=== PATIENT | male | born 2000 | race African-American/Black ===

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

== ENCOUNTER 2018-04-14 12:19 | Emergency (ER) | payer OTHER ==
[2018-04-14] MEDS ORDERED: Lidocaine 1% with EPINEPHrine 1:100,000 20 ML MDV INJECT ONE (12:38)
[2018-04-14] MEDS ORDERED: Diphtheria,Pertussis(Acell),Tetanus Vaccine 0.5 ML SDV IM ONE (12:38)
--- NOTE | 2018-04-14 13:05 | EDM.PDOC ---
ED HPI GENERAL MEDICAL PROBLEM - General Chief Complaint: Laceration Stated Complaint: LIP LAC Time Seen by Provider: 04/14/18 12:30 Source of Information: Reports: Patient History Limitations: Reports: No Limitations - History of Present Illness INITIAL COMMENTS - FREE TEXT/NARRATIVE: The patient [facility] the [facility] living. He was playing basketball and he was hit with an elbow in the lower lip. He has a laceration just below the lower lip and one inside the lip. The laceration is about 1cm long on the outside. He was not knocked out. He is unsure of his tetanus. He has no teeth that are moving. Onset: Sudden Duration: Minutes: Location: Reports: Face Quality: Reports: Sharp Severity: Mild Improves with: Reports: None Worsens with: Reports: None Associated Symptoms: Reports: No Other Symptoms Lower Lip Pain Score (Numeric/FACES): 7 - Related Data Allergies Allergy/AdvReac Type Severity Reaction Status Date / Time No Known Allergies Allergy Verified 04/14/18 12:58 Home Meds: Home Meds . [No Known Home Meds] 12/17/17 [History] Past Medical History - Past Health History Medical/Surgical History: Denies Medical/Surgical History Social & Family History - Family History Family Medical History: Noncontributory - Tobacco Use Smoking Status *Q: Never Smoker - Caffeine Use Caffeine Use: Reports: Soda, Tea - Recreational Drug Use Recreational Drug Type: Reports: Marijuana/Hashish Other Recreational Drug Type: last used a few months ago ED ROS GENERAL - Review of Systems Review Of Systems: See Below Constitutional: Reports: No Symptoms HEENT: Reports: Other (Laceration to the inner lip and below the lower lip) Respiratory: Reports: No Symptoms Cardiovascular: Reports: No Symptoms Endocrine: Reports: No Symptoms GI/Abdominal: Reports: No Symptoms : Reports: No Symptoms ED EXAM, SKIN/RASH Exam: See Below Exam Limited By: No Limitations General Appearance: Alert, No Apparent Distress Ears: Normal External Exam Nose: Normal Inspection Head: Other (1cm laceration just below the lower lip. 0.5cm laceration to the inner lip. The teeth are solid and do not move.) Neck: Normal Inspection Respiratory/Chest: No Respiratory Distress Neurological: Alert, Oriented, No Motor/Sensory Deficits ED SKIN PROCEDURES - Laceration/Wound Repair Face Lac/Wound length In cm: 1 Appearance: Subcutaneous, Linear Local Anesthesia - Lidocaine (Xylocaine): 1% with EPI Skin Prep: Saline Exploration/Debridement/Repair: Wound Explored, In a Bloodless Field, Explored to Base Closed with: Sutures Suture Size: 4-0 # of Sutures: 4 Suture Type: Nylon, Interrupted, Simple # of Sutures: 1 Tetanus Status Addressed: Yes Complications: No Course - Vital Signs Last Recorded V/S: Last Vital Signs Temp 98.2 F 04/14/18 12:30 Pulse 71 04/14/18 12:30 Resp 20 04/14/18 12:30 BP 137/86 04/14/18 12:30 Pulse Ox 100 04/14/18 12:30 - Orders/Labs/Meds Orders: Active Orders 24 hr Category Date Time Status Vaccines to be Administered [RC] PER UNIT ROUTINE Care 04/14/18 12:38 Active Meds: Medications Discontinued Medications Generic Name Dose Route Start Last Admin Trade Name Jaron PRN Reason Stop Dose Admin Diphtheria/Tetanus/Acell Pertussis 0.5 ml 04/14/18 12:38 04/14/18 12:44 Adacel IM 04/14/18 12:39 0.5 ml .ONCE ONE Administration Lidocaine/Epinephrine 20 ml 04/14/18 12:38 04/14/18 12:43 Xylocaine 1% With Epinephrine 1:100,000 INJECT 04/14/18 12:39 20 ml ONETIME ONE Administration - Re-Assessments/Exams Free Text/Narrative Re-Assessment/Exam: 04/14/18 13:35 I ordered tetanus and my PA student Nava sutured the lacerations. They look good. Departure - Departure Time of Disposition: 13:40 Disposition: Home, Self-Care 01 Condition: Good Clinical Impression: Laceration - Discharge Information Referrals: PCP,None [Primary Care Provider] - Forms: ED Department Discharge Additional Instructions: Clean the wound to the outside of your lip 2 times per day with warm soapy water and apply antibiotic ointment after. Have the sutures removed in 1 week. Rinse with water after eating or drinking for the suture in your mouth. That is an absorbable suture and that will come fall out in about 1 to 2 weeks. Please return if you have any sign of infection such as redness, pain, swelling or drainage. - My Orders Last 24 Hours: My Active Orders 04/14/18 12:38 Vaccines to be Administered [RC] PER UNIT ROUTINE - Assessment/Plan Last 24 Hours: My Active Orders 04/14/18 12:38 Vaccines to be Administered [RC] PER UNIT ROUTINE ED LACERATION/WOUND PROCEDURES - Laceration/Wound Repair Face Laceration/Wound Length In cm: 0.5 Appearance: Subcutaneous, Irregular Anesthetic Type: Local Local Anesthesia - Lidocaine (Xylocaine): 1% with EPI Skin Prep: Saline Wound Exploration, Debridement, Revision: Wound Explored, In a Bloodless Field, Explored to Base Suture Size: 4-0 # of Sutures: 1 Suture Type: Other (vicryl) Tetanus Status Addressed: Yes Complications: None
== END 2018-04-14 13:51 | disposition home or self-care (01) ==
LOC: JD.ED 12:19
DX: S01.511A Laceration without foreign body of lip, initial encounter (principal); W50.0XXA Accidental hit or strike by another person, initial encounter; Y93.67 Activity, basketball; Z23 Encounter for immunization
CPT/HCPCS: 12011; 90471; 90715; 99282; 99283-25